=== PATIENT | female | born 1955 | race Caucasian/White ===

== ENCOUNTER 2017-03-01 19:23 | Inpatient (IN) | payer BC ==
[~2017-03-01] VITALS: Ht 152.4 cm; Wt 72.0 kg
[2017-03-01 23:07] VITALS: PULSE 72
[2017-03-01 23:11] VITALS: BP 164/86; RESP 20
[2017-03-01 23:30] VITALS: BP 120/73; RESP 16
[2017-03-02] VITALS (11 sets, daily range): BP systolic 115–154; BP diastolic 60–78; PULSE 59–73; RESP 15–19; Ht 152.4 cm; Wt 72.0 kg
[2017-03-02] MEDS ORDERED: ONDANSETRON 4 MG INJ IV PRN (01:30)
[2017-03-02] MEDS ORDERED: CALCIUM GLUCONATE 10% 1 GM in SOD CHLORIDE 0.9% 100 ML IVPB ONE (01:30)
[2017-03-02] MEDS ORDERED: DOCUSATE SODIUM 100 MG CAP PO PRN (01:30)
[2017-03-02] MEDS ORDERED: TRAM50TA2 PO (01:33)
[2017-03-02] MEDS ORDERED: CARV12.598 PO (01:33)
[2017-03-02] MEDS ORDERED: SIMV5TAB50 PO (01:33)
[2017-03-02] MEDS ORDERED: DILTIAZEM PO (01:33)
[2017-03-02] MEDS ORDERED: CHOL100062 PO (01:33)
[2017-03-02] MEDS ORDERED: CALC600T11 PO (01:33)
[2017-03-02 08:23] LABS: BASOPHILS % 0.3 % (0.0-2.0); EOSINOPHILS # 0.3 10^3/ul (0.0-0.5); EOSINOPHILS % 3.5 % (0.0-7.0); HEMATOCRIT 39.5 % (37.0-47.0); HEMOGLOBIN 13.7 g/dl (12.0-16.0); LYMPHOCYTES # 1.9 10^3/ul (0.8-2.9); LYMPHOCYTES % 24.9 % (15.0-51.0); MEAN CORPUSCULAR HEMOGLOBIN 29.9 pg (29.0-33.0); MEAN CORPUSCULAR HGB CONC 34.7 g/dl (32.0-37.0); MEAN CORPUSCULAR VOLUME 86.2 fl (82.0-101.0); MEAN PLATELET VOLUME 11.9 fl (7.4-10.4); MONOCYTE # 0.6 10^3/ul (0.3-0.9); MONOCYTES % 7.4 % (0.0-11.0); NEUTROPHILS % 63.8 % (39.0-77.0); PLATELET COUNT 204 10^3/UL (140-415); RED BLOOD COUNT 4.58 10^6/ul (4.20-5.40); RED CELL DISTRIBUTION WIDTH 12.9 % (11.5-14.5); WHITE BLOOD COUNT 7.4 10^3/ul (4.8-10.8)
[2017-03-02 08:41] LABS: CREATININE 0.83 mg/dl (0.44-1.00); MAGNESIUM 1.9 mg/dl (1.7-2.5); PHOSPHORUS 7.1 mg/dl (2.5-4.9); POTASSIUM 3.9 mmol/L (3.5-5.1)
[2017-03-02 08:58] LABS: CALCIUM 5.7 mg/dl (8.4-10.2)
[2017-03-02] MEDS: CALCIUM CARBONATE 500 MG CHEW TAB PO SCH ×4 (09:09→21:26)
[2017-03-02] MEDS: FAMOTIDINE 20 MG TAB GTB SCH ×2 (09:09→21:27)
[2017-03-02] MEDS: CHOLECALCIFEROL 1,000 UNIT TAB PO SCH ×2 (09:09→21:26)
--- NOTE | 2017-03-02 14:07 | HP ---
Date/Time of Note Date/Time of Note DATE: 03/02/17 TIME: 13:50 Assessment/Plan VTE Prophylaxis VTE Prophylaxis Intervention: ambulation Lines/Catheters IV Catheter Type (from Nrs): Saline Lock Assessment/Plan Chief Complaint/Hosp Course 1. 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 Hypertension, controlled 3. Chronic Hypocalcemia unknown etiology 4. Hx of stroke 2 years ago 5. Dyslipidemia 6. Overweight Problems: Assessment/Plan 1. Neurology consult dr Delio Del Valle, dr Catherine is covering, contacted 2. Continue home meds 3. Will start pt on prednisone HPI/ROS Admit Date/Time Admit Date/Time Mar 01, 2017 at 22:54 Hx of Present Illness Pt went to [place] [facility] 03/01/17 with right eye pain and fascial drop. She reported that she started to have pain in right eye 4 days prior. She also reported right side face droopiness. She is unable to see with her right eye.Pt is positive for hypocalcemia for 8 years. SHE has dyslipidemia and Hypertension. HX of stroke 2 yo ago ROS Constitutional: no complaints Eyes: discharge, pain (right yey), redness, visual change (blind right eye), No no complaints, No other ENT: bleeding, congestion, pain, No discharge, No dysphagia, No no complaints, No other, No sore throat Respiratory: no complaints Cardiovascular: edema, no complaints, No chest pain, No lightheadedness, No orthopenea, No other, No palpitations, No paroxysmal nocturnal dyspnea Gastrointestinal: no complaints Genitourinary: no complaints Skin: no complaints Neurologic: focal-weakness (right side of the face), headache, no complaints, No confusion, No dizziness, No other, No seizure, No syncope Endocrine: polydypsia, polyuria, No dry skin, No no complaints, No other, No temp intolerance, No weight change Psychological: anxiety, depression, No confusion, No nl mood/affect, No no complaints, No other, No suicidal Additional Comments report hypocalcemia PMH/Family/Social Past Medical History Medical History: hypertension, other (hypocalcemia, hx stroke) Past Surgical History Past Surgical Hx: other (C section 23 years ago) Family History Significant Family History: diabetes (mother) Social History Alcohol Use: none Smoking Status: Never smoker Drug Use: none Exam/Review of Systems Vital Signs Vitals Vital Signs Date Time Temp Pulse Resp B/P Pulse Ox O2 Delivery O2 Flow Rate FiO2 03/02/17 12:05 72 03/02/17 11:24 98.1 19 133/75 98 Intake and Output 03/01/17 03/01/17 03/02/17 15:00 23:00 07:00 Intake Total 610 ml Balance 610 ml Exam Exam right side fascial weakness and droopiness, pt is unable to see anything with right eye Constitutional: alert, oriented Head: atraumatic, normocephalic Eyes: other (right eye ptosis) ENMT: nl external ears & nose Neck: supple Respiratory: clear to auscultation Cardiovascular: regular rate and rhythm Gastrointestinal: soft Genitourinary - Female: nl external genitalia Musculoskeletal: muscle weakness (right side of faCE) Neurological: [employer]PERATOR II-XII intact, No DTR's symmetric, No confused, No focal weakness, No lethargic, No nl mental status, No nl speech, No nl strength, No numbness, No other, No reflexes , No unresponsive Skin: nl turgor Labs Result Diagram: 03/02/1744 03/02/1744 Medications Medications Current Medications Acetaminophen (Tylenol Tab) 650 mg Q6H PRN PO PAIN AND OR ELEVATED TEMP; Start 03/02/17 at 01:30 Docusate Sodium (Colace) 100 mg BID PRN PO CONSTIPATION; Start 03/02/17 at 01:30 Ondansetron HCl (Zofran Inj) 4 mg Q6H PRN IV NAUSEA AND/OR VOMITING; Start 03/02 at 01:30 Famotidine (Pepcid) 20 mg BID GTB Last administered on 03/02/17 09:09; Admin Dose 20 MG; Start 03/02/17 at 09:00 Calcium Carbonate (Tums) 2,000 mg QID PO Last administered on 03/02/17 12:59; Admin Dose 2,000 MG; Start 03/02/17 at 09:00 Carvedilol (Coreg) 12.5 mg BID PO Last administered on 03/02/17 09:09; Admin Dose 12.5 MG; Start 03/02/17 at 09:00 Cholecalciferol (Vitamin D) 1,000 unit BID PO Last administered on 9/9/17at 09: 09; Admin Dose 1,000 UNIT; Start 03/02/17 at 09:00 Tramadol HCl (Ultram) 50 mg Q8 PRN PO PAIN; Start 03/02/17 at 01:30 Atorvastatin Calcium (Lipitor) 10 mg DAILY@21 PO ; Start 03/02/17 at 21:00 JOHANN CHACON Mar 02, 2017 14:01
[2017-03-02] MEDS: predniSONE 20 MG TAB PO SCH (14:55)
[2017-03-02] MEDS ORDERED: ASPIRIN (EC) 81 MG TAB PO ONE (17:00)
[2017-03-02] MEDS: ASPIRIN (EC) 81 MG TAB PO SCH (17:00)
[2017-03-02 17:58] LABS: CALCIUM 5.9 mg/dl (8.4-10.2)
[2017-03-02] MEDS ORDERED: MAGNESIUM SULFATE 2 GM/50 ML 50 ML IVPB ONE (18:30)
[2017-03-02] MEDS ORDERED: CALCIUM GLUCONATE 10% 2 GM in SOD CHLORIDE 0.9% 100 ML IVPB ONE (21:00)
[2017-03-02] MEDS: ATORVASTATIN 10 MG TAB PO SCH (21:26)
[2017-03-02] MEDS: ACETAMINOPHEN 325 MG TAB PO PRN (21:34)
[2017-03-03] VITALS (12 sets, daily range): BP systolic 119–143; BP diastolic 66–89; PULSE 62–80; RESP 15–20
[2017-03-03 07:42] LABS: BASOPHILS % 0.1 % (0.0-2.0); EOSINOPHILS % 0.1 % (0.0-7.0); HEMATOCRIT 40.6 % (37.0-47.0); LYMPHOCYTES # 1.3 10^3/ul (0.8-2.9); LYMPHOCYTES % 12.9 % (15.0-51.0); MEAN CORPUSCULAR HEMOGLOBIN 29.4 pg (29.0-33.0); MEAN CORPUSCULAR HGB CONC 34.5 g/dl (32.0-37.0); MEAN CORPUSCULAR VOLUME 85.3 fl (82.0-101.0); MEAN PLATELET VOLUME 12.4 fl (7.4-10.4); MONOCYTE # 0.3 10^3/ul (0.3-0.9); MONOCYTES % 3.3 % (0.0-11.0); PLATELET COUNT 175 10^3/UL (140-415); RED BLOOD COUNT 4.76 10^6/ul (4.20-5.40); RED CELL DISTRIBUTION WIDTH 12.6 % (11.5-14.5); WHITE BLOOD COUNT 10.3 10^3/ul (4.8-10.8)
[2017-03-03] MEDS: FAMOTIDINE 20 MG TAB GTB SCH ×2 (08:05→21:10)
[2017-03-03] MEDS: predniSONE 20 MG TAB PO SCH (08:05)
[2017-03-03] MEDS: CALCIUM CARBONATE 500 MG CHEW TAB PO SCH ×4 (08:05→21:10)
[2017-03-03] MEDS: CHOLECALCIFEROL 1,000 UNIT TAB PO SCH (08:06)
[2017-03-03] MEDS: ASPIRIN (EC) 81 MG TAB PO SCH (08:06)
[2017-03-03 08:11] LABS: ALBUMIN 3.9 g/dl (3.3-4.9); ALBUMIN/GLOBULIN RATIO 1.18; BILIRUBIN,INDIRECT 0.3 mg/dl (0-1.1); BILIRUBIN,TOTAL 0.3 mg/dl (0.2-1.3); CALCIUM 6.6 mg/dl (8.4-10.2); CREATININE 0.75 mg/dl (0.44-1.00); POTASSIUM 4.3 mmol/L (3.5-5.1); TOTAL PROTEIN 7.2 g/dl (6.1-8.1)
[2017-03-03 08:28] LABS: T3 UPTAKE 31.4 % (23.5-40.5)
--- NOTE | 2017-03-03 16:13 | CONS ---
Date/Time of Note Date/Time of Note DATE: 03/03/17 TIME: 16:09 Assessment/Plan Assessment/Plan Chief Complaint/Hosp Course 61 yo female with history of HTN, HLD, prior CVA p/w right CN: VII peripheral weakness r/o Carlos's vs CVA further imaging pending. Recommendations MRI Brain +/- contrast Prednisone 60 mg daily- Medrol Dose Pack optimize risk factors for stroke SBP<140/90 check FLP, HBA1C ECHO management of hypocalcemia per primary team will follow Problems: Consultation Date/Type/Reason Admit Date/Time Mar 01, 2017 at 22:54 Date of Consultation: Mar 03, 2017 Type of Consultation: Neurology Reason for Consultation right bells Referring Provider: XANEDR OLSON of Present Illness 61 year old female with history of HTN, HLD, previous CVA 2 years ago with residual left sided weakness p/w pain in right eye over 4 days ago with right sided facial weakness. She is undergoing further work up for possible CVA, prednisone initiated for possible Carlos's. MRI Brain +/- contrast pending. Eyes: discharge, pain (right yey), redness, visual change (blind right eye), No no complaints, No other ENT: bleeding, congestion, pain, No discharge, No dysphagia, No no complaints, No other, No sore throat Respiratory: no complaints Cardiovascular: edema, no complaints, No chest pain, No lightheadedness, No orthopenea, No other, No palpitations, No paroxysmal nocturnal dyspnea Gastrointestinal: no complaints Genitourinary: no complaints Skin: no complaints Neurologic: focal-weakness (right side of the face), headache, no complaints, No confusion, No dizziness, No other, No seizure, No syncope Psychological: anxiety, depression, No confusion, No nl mood/affect, No no complaints, No other, No suicidal Past Medical History Medical History: hypertension, other (hypocalcemia, hx stroke) Past Surgical History Past Surgical Hx: other (C section 23 years ago) Social History Alcohol Use: none Smoking Status: Never smoker Drug Use: none Exam/Review of Systems Vital Signs Vitals Vital Signs Date Time Temp Pulse Resp B/P Pulse Ox O2 Delivery O2 Flow Rate FiO2 03/03/17 16:06 80 03/03/17 12:24 97.5 20 143/70 98 Intake and Output 03/02/17 03/02/17 03/03/17 15:00 23:00 07:00 Intake Total 1500 ml 400 ml Balance 1500 ml 400 ml Exam Constitutional: alert, oriented, well developed Neurological: DTR's symmetric, nl mental status, nl speech, nl strength (DAPHNE blinks to threat EOMI no nystagmus, right facial peripheral weakness) Results Result Diagram: 03/03/17 0646 03/03/17 0646 Results 24 hrs Laboratory Tests Test 03/02/17 17:20 03/02/17 19:20 03/03/17 06:46 Calcium Level 5.9 *L 5.7 *L 6.6 L Magnesium Level 1.9 Parathyroid Hormone (Intact) White Blood Count 10.3 # Red Blood Count 4.76 Hemoglobin 14.0 Hematocrit 40.6 Mean Corpuscular Volume 85.3 Mean Corpuscular Hemoglobin 29.4 Mean Corpuscular Hemoglobin Concent 34.5 Red Cell Distribution Width 12.6 Platelet Count 175 Mean Platelet Volume 12.4 H Neutrophils % 83.0 H Lymphocytes % 12.9 L Monocytes % 3.3 Eosinophils % 0.1 Basophils % 0.1 Nucleated Red Blood Cells % 0.0 Neutrophils # (Manual) 8.5 H Lymphocytes # 1.3 Monocytes # 0.3 Eosinophils # 0.0 Basophils # 0.0 Nucleated Red Blood Cells # 0.0 Sodium Level 140 Potassium Level 4.3 Chloride Level 104 Carbon Dioxide Level 26 Anion Gap 14 Blood Urea Nitrogen 15 Creatinine 0.75 Glucose Level 142 # Ionized Calcium (Measured) 0.8 L Total Bilirubin 0.3 Direct Bilirubin 0.00 Indirect Bilirubin 0.3 Aspartate Amino Transf (AST/SGOT) 29 Alanine Aminotransferase (ALT/SGPT) 34 Alkaline Phosphatase 79 Total Protein 7.2 Albumin 3.9 Globulin 3.30 H Albumin/Globulin Ratio 1.18 Free Thyroxine Index 2.57 Thyroxine (T4) 8.2 Triiodothyronine (T3) Uptake 31.4 Medications Medications Current Medications Acetaminophen (Tylenol Tab) 650 mg Q6H PRN PO PAIN AND OR ELEVATED TEMP Last administered on 03/02/17t 21:34; Admin Dose 650 MG; Start 03/02/17 at 01:30 Docusate Sodium (Colace) 100 mg BID PRN PO CONSTIPATION; Start 03/02/17 at 01:30 Ondansetron HCl (Zofran Inj) 4 mg Q6H PRN IV NAUSEA AND/OR VOMITING; Start 03/02 at 01:30 Famotidine (Pepcid) 20 mg BID GTB Last administered on 03/03/17 08:05; Admin Dose 20 MG; Start 03/02/17 at 09:00 Calcium Carbonate (Tums) 2,000 mg QID PO Last administered on 03/03/17 12:41; Admin Dose 2,000 MG; Start 03/02/17 at 09:00 Carvedilol (Coreg) 12.5 mg BID PO Last administered on 03/03/17 08:06; Admin Dose 12.5 MG; Start 03/02/17 at 09:00 Cholecalciferol (Vitamin D) 1,000 unit BID PO Last administered on 03/03/17 08 :06; Admin Dose 1,000 UNIT; Start 03/02/17 at 09:00 Tramadol HCl (Ultram) 50 mg Q8 PRN PO PAIN; Start 03/02/17 at 01:30 Atorvastatin Calcium (Lipitor) 10 mg DAILY@21 PO Last administered on 03/02/17 21:26; Admin Dose 10 MG; Start 03/02/17 at 21:00 Prednisone (Prednisone) 60 mg DAILY PO Last administered on 03/03/17 08:05; Admin Dose 60 MG; Start 03/02/17 at 14:30 Aspirin (Halfprin) 81 mg DAILY PO ; Start 03/02/17 at 17:00 VERÓNICA URIARTE MD Mar 03, 2017 16:13
--- NOTE | 2017-03-03 18:31 | PN ---
Date/Time of Note Date/Time of Note DATE: 03/03/17 TIME: 18:25 Assessment/Plan VTE Prophylaxis VTE Prophylaxis Intervention: LMWH Lines/Catheters IV Catheter Type (from Nrs): Saline Lock Assessment/Plan Chief Complaint/Hosp Course 1. 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 Hypertension, controlled 3. Chronic Hypocalcemia could be secondary Hypoparathyroidism( pt said thast she was told in [place] [facility]) vs Vit d def 4. Hx of stroke 2 years ago 5. Dyslipidemia 6. Overweight Problems: Assessment/Plan 1. MRI pending 2. C/W ASA, order ECHO, FLP and HBA1C 3. c/w Prednisone 4 Ergocalciferol and Ca carbonate 5 PTH, Vit d 25 pending Problems: Subjective 24 Hr Interval Summary Free Text/Dictation Tingling and numbness has improved a bit but weakness still there Exam/Review of Systems Vital Signs Vitals Vital Signs Date Time Temp Pulse Resp B/P Pulse Ox O2 Delivery O2 Flow Rate FiO2 03/03/17 16:17 98.5 89 20 122/71 98 Intake and Output 03/02/17 03/02/17 03/03/17 15:00 23:00 07:00 Intake Total 1500 ml 400 ml Balance 1500 ml 400 ml Exam Constitutional : discharge, pain (right yey), redness, visual change (blind right eye), No no complaints, No other Respiratory: CTAB Cardiovascular: Regular rate and rthym Gastrointestinal: soft, non tender Ext: no edema Neurologic: focal-weakness (right side of the face), headache, no complaints, Results Result Diagram: 03/03/17 0646 03/03/17 0646 Results 24 hrs Laboratory Tests Test 03/02/17 19:20 03/03/17 06:46 Calcium Level 5.7 *L 6.6 L White Blood Count 10.3 # Red Blood Count 4.76 Hemoglobin 14.0 Hematocrit 40.6 Mean Corpuscular Volume 85.3 Mean Corpuscular Hemoglobin 29.4 Mean Corpuscular Hemoglobin Concent 34.5 Red Cell Distribution Width 12.6 Platelet Count 175 Mean Platelet Volume 12.4 H Neutrophils % 83.0 H Lymphocytes % 12.9 L Monocytes % 3.3 Eosinophils % 0.1 Basophils % 0.1 Nucleated Red Blood Cells % 0.0 Neutrophils # (Manual) 8.5 H Lymphocytes # 1.3 Monocytes # 0.3 Eosinophils # 0.0 Basophils # 0.0 Nucleated Red Blood Cells # 0.0 Sodium Level 140 Potassium Level 4.3 Chloride Level 104 Carbon Dioxide Level 26 Anion Gap 14 Blood Urea Nitrogen 15 Creatinine 0.75 Glucose Level 142 # Ionized Calcium (Measured) 0.8 L Total Bilirubin 0.3 Direct Bilirubin 0.00 Indirect Bilirubin 0.3 Aspartate Amino Transf (AST/SGOT) 29 Alanine Aminotransferase (ALT/SGPT) 34 Alkaline Phosphatase 79 Total Protein 7.2 Albumin 3.9 Globulin 3.30 H Albumin/Globulin Ratio 1.18 Free Thyroxine Index 2.57 Thyroxine (T4) 8.2 Triiodothyronine (T3) Uptake 31.4 Medications Medications Current Medications Acetaminophen (Tylenol Tab) 650 mg Q6H PRN PO PAIN AND OR ELEVATED TEMP Last administered on 03/02/17 21:34; Admin Dose 650 MG; Start 03/02/17 at 01:30 Docusate Sodium (Colace) 100 mg BID PRN PO CONSTIPATION; Start 03/02/17 at 01:30 Ondansetron HCl (Zofran Inj) 4 mg Q6H PRN IV NAUSEA AND/OR VOMITING; Start 03/02 at 01:30 Famotidine (Pepcid) 20 mg BID GTB Last administered on 03/03/17 08:05; Admin Dose 20 MG; Start 03/02/17 at 09:00 Calcium Carbonate (Tums) 2,000 mg QID PO Last administered on 03/03/17 17:13; Admin Dose 2,000 MG; Start 03/02/17 at 09:00 Carvedilol (Coreg) 12.5 mg BID PO Last administered on 03/03/17 08:06; Admin Dose 12.5 MG; Start 03/02/17 at 09:00 Tramadol HCl (Ultram) 50 mg Q8 PRN PO PAIN; Start 03/02/17 at 01:30 Atorvastatin Calcium (Lipitor) 10 mg DAILY@21 PO Last administered on 03/02/17 21:26; Admin Dose 10 MG; Start 03/02/17 at 21:00 Prednisone (Prednisone) 60 mg DAILY PO Last administered on 03/03/17 08:05; Admin Dose 60 MG; Start 03/02/17 at 14:30 Aspirin 81 mg 81 mg DAILY PO ; Start 03/02/17 at 17:00 Calcium Gluconate/ Sodium Chloride (Ca Gluc/NS) 110 ml @ 110 mls/hr ONCE ONCE IVPB ; Start 03/03/17 at 20:00; Stop 03/03/17 at 20:59 Ergocalciferol (Drisdol) 50,000 unit Mo@09 PO ; Start 03/04/17 at 09:00 STEPHEN OCHOA MD Mar 03, 2017 18:31
[2017-03-03] MEDS ORDERED: CALCIUM GLUCONATE 10% 1 GM in SOD CHLORIDE 0.9% 100 ML IVPB ONE (20:00)
[2017-03-03] MEDS: ATORVASTATIN 10 MG TAB PO SCH (21:10)
[2017-03-03] MEDS: ACETAMINOPHEN 325 MG TAB PO PRN (23:09)
[2017-03-04] VITALS (12 sets, daily range): BP systolic 111–152; BP diastolic 63–84; PULSE 60–74; RESP 18–20
[2017-03-04 07:47] LABS: BASOPHILS % 0.2 % (0.0-2.0); EOSINOPHILS # 0.1 10^3/ul (0.0-0.5); EOSINOPHILS % 0.4 % (0.0-7.0); HEMATOCRIT 40.2 % (37.0-47.0); HEMOGLOBIN 13.5 g/dl (12.0-16.0); LYMPHOCYTES # 3.4 10^3/ul (0.8-2.9); LYMPHOCYTES % 20.3 % (15.0-51.0); MEAN CORPUSCULAR HEMOGLOBIN 29.3 pg (29.0-33.0); MEAN CORPUSCULAR HGB CONC 33.6 g/dl (32.0-37.0); MEAN CORPUSCULAR VOLUME 87.2 fl (82.0-101.0); MEAN PLATELET VOLUME 12.4 fl (7.4-10.4); MONOCYTE # 1.1 10^3/ul (0.3-0.9); MONOCYTES % 6.6 % (0.0-11.0); PLATELET COUNT 215 10^3/UL (140-415); RED BLOOD COUNT 4.61 10^6/ul (4.20-5.40); WHITE BLOOD COUNT 16.6 10^3/ul (4.8-10.8)
[2017-03-04 08:22] LABS: MAGNESIUM 2.1 mg/dl (1.7-2.5); PHOSPHORUS 5.4 mg/dl (2.5-4.9)
[2017-03-04 08:31] LABS: ALBUMIN 3.9 g/dl (3.3-4.9); ALBUMIN/GLOBULIN RATIO 1.14; BILIRUBIN,INDIRECT 0.1 mg/dl (0-1.1); BILIRUBIN,TOTAL 0.1 mg/dl (0.2-1.3); CALCIUM 6.3 mg/dl (8.4-10.2); CREATININE 0.85 mg/dl (0.44-1.00); POTASSIUM 3.5 mmol/L (3.5-5.1); TOTAL PROTEIN 7.3 g/dl (6.1-8.1)
[2017-03-04] MEDS ORDERED: ERGOCALCIFEROL 50,000 UNIT CAP PO SCH (09:00)
[2017-03-04] MEDS: ASPIRIN (EC) 81 MG TAB PO SCH (09:12)
[2017-03-04] MEDS: predniSONE 20 MG TAB PO SCH (09:12)
[2017-03-04] MEDS: CALCIUM CARBONATE 500 MG CHEW TAB PO SCH ×5 (09:12→23:00)
[2017-03-04] MEDS: FAMOTIDINE 20 MG TAB GTB SCH ×2 (09:12→21:22)
--- NOTE | 2017-03-04 11:21 | CONS ---
Date/Time of Note Date/Time of Note DATE: 03/04/17 TIME: 11:19 Consult Date/Type/Reason Admit Date/Time Mar 01, 2017 at 22:54 Initial Consult Date 03/03/17 Type of Consultation: Neurology Reason for Consultation right bells Ordering Provider: XANDER OLSON MD Subjective symptoms persistent right peripheral facial weakness pending MRI Objective Vital Signs Date Time Temp Pulse Resp B/P Pulse Ox O2 Delivery O2 Flow Rate FiO2 03/04/17 08:21 97.8 71 18 128/75 96 Intake and Output 03/03/17 03/03/17 03/04/17 15:00 23:00 07:00 Intake Total 520 ml Balance 520 ml Exam Constitutional: alert, oriented, well developed Neurological: DTR's symmetric, nl mental status, nl speech, nl strength (DAPHNE blinks to threat EOMI no nystagmus, right facial peripheral weakness) Results/Medications Result Diagram: 03/04/17 0639 03/04/17 0639 Results 24 hrs Laboratory Tests Test 03/04/17 06:39 White Blood Count 16.6 #H Red Blood Count 4.61 Hemoglobin 13.5 Hematocrit 40.2 Mean Corpuscular Volume 87.2 Mean Corpuscular Hemoglobin 29.3 Mean Corpuscular Hemoglobin Concent 33.6 Red Cell Distribution Width 13.0 Platelet Count 215 # Mean Platelet Volume 12.4 H Neutrophils % 72.0 Lymphocytes % 20.3 Monocytes % 6.6 Eosinophils % 0.4 Basophils % 0.2 Nucleated Red Blood Cells % 0.0 Neutrophils # (Manual) 11.9 H Lymphocytes # 3.4 H Monocytes # 1.1 H Eosinophils # 0.1 Basophils # 0.0 Nucleated Red Blood Cells # 0.0 Sodium Level 143 Potassium Level 3.5 Chloride Level 105 Carbon Dioxide Level 27 Anion Gap 15 Blood Urea Nitrogen 19 Creatinine 0.85 Glucose Level 85 # Hemoglobin A1c 6.0 H Calcium Level 6.3 L Ionized Calcium (Measured) 0.8 L Phosphorus Level 5.4 H Magnesium Level 2.1 Total Bilirubin 0.1 L Direct Bilirubin 0.00 Indirect Bilirubin 0.1 Aspartate Amino Transf (AST/SGOT) 25 Alanine Aminotransferase (ALT/SGPT) 31 Alkaline Phosphatase 74 Total Protein 7.3 Albumin 3.9 Globulin 3.40 H Albumin/Globulin Ratio 1.14 Triglycerides Level 97 Cholesterol Level 203 H LDL Cholesterol, Calculated 144 HDL Cholesterol 40 Cholesterol/HDL Ratio 5.0 Medications Current Medications Acetaminophen (Tylenol Tab) 650 mg Q6H PRN PO PAIN AND OR ELEVATED TEMP Last administered on 03/03/17 23:09; Admin Dose 650 MG; Start 03/02/17 at 01:30 Docusate Sodium (Colace) 100 mg BID PRN PO CONSTIPATION; Start 03/02/17 at 01:30 Ondansetron HCl (Zofran Inj) 4 mg Q6H PRN IV NAUSEA AND/OR VOMITING; Start 03/02 at 01:30 Famotidine (Pepcid) 20 mg BID GTB Last administered on 03/04/17 09:12; Admin Dose 20 MG; Start 03/02/17 at 09:00 Calcium Carbonate (Tums) 2,000 mg QID PO Last administered on 03/04/17 09:12; Admin Dose 2,000 MG; Start 03/02/17 at 09:00 Carvedilol (Coreg) 12.5 mg BID PO Last administered on 03/04/17 09:13; Admin Dose 12.5 MG; Start 03/02/17 at 09:00 Tramadol HCl (Ultram) 50 mg Q8 PRN PO PAIN; Start 03/02/17 at 01:30 Atorvastatin Calcium (Lipitor) 10 mg DAILY@21 PO Last administered on 21:10; Admin Dose 10 MG; Start 03/02/17 at 21:00 Prednisone (Prednisone) 60 mg DAILY PO Last administered on 03/04/17 09:12; Admin Dose 60 MG; Start 03/02/17 at 14:30 Aspirin (Halfprin) 81 mg DAILY PO Last administered on 03/04/17 09:12; Admin Dose 81 MG; Start 03/02/17 at 17:00 Ergocalciferol (Drisdol) 50,000 unit Mo@09 PO Last administered on 03/04/17 09 :12; Admin Dose 50,000 UNIT; Start 03/04/17 at 09:00 Assessment/Plan Chief Complaint/Hosp Course 61 yo female with history of HTN, HLD, prior CVA p/w right CN: VII peripheral weakness r/o Carlos's vs CVA further imaging pending. Recommendations MRI Brain +/- contrast Prednisone 60 mg daily- Medrol Dose Pack optimize risk factors for stroke SBP<140/90 HBA1C: 6.0% LDL: 144 increase statin to 40 mg daily ECHO management of hypocalcemia per primary team will follow Problems: VERÓNICA URIARTE MD Mar 04, 2017 11:21
--- NOTE | 2017-03-04 13:51 | RADRPT ---
Echocardiogram Report Patient Name: MARILU COTE Gender: Female Date: 1955 Study Date: 04-Mar-2017 [employer] Analyst: Jose Luis Ring [facility] Location: 5540 Ref. Physician: STEPHEN OCHOA Quality: Adequate Procedures: Transthoracic echocardiogram with complete 2D, M-Mode, and doppler examination. Indications: Thrombus?, Stroke. 2D/M Mode Doppler Measurement Value Normal Ranges Measurement Value Normal Ranges LVIDd 2D 3.7 3.5 - 5.6 cm AV Peak Narendra 1.6 m/sec LVIDs 2D 2.4 2.1 - 4.1 cm AV Peak PG 10.0 mmHg FS 2D 35.6 % LVOT Peak Narendra 1.3 m/sec LVPWd 2D 1.3 0.6 - 1.1 cm LVOT Peak PG 7.0 mmHg IVSd 2D 1.3 0.6 - 1.1 cm MV E Peak Narendra 0.9 m/sec IVS/LVPW 2D 1.0 MV A Peak Narendra 0.8 m/sec AoR Diam 2D 2.5 2.0 - 3.7 cm MV E/A 1.1 LA/Ao 2D 2 0 - 1 MV Decel Time 246 msec EDV 2D 49.8 cm3 MV E/A 1.1 ESV 2D 13.3 cm3 TR Peak Narendra 2.8 m/sec LA Dimen 2D 3.9 2.3 - 4.0 cm TR Peak PG 31.0 mmHg RVSP 34.0 mmHg Findings Left Ventricle: Hyperdynamic left ventricular systolic function. Normal left ventricular cavity size. Mild concentric left ventricular hypertrophy. Ejection fraction is visually estimated at 6065 %. Tissue Doppler/Mitral Doppler indices are consistent with impaired relaxation (Stage I diastolic dysfunction). Right Ventricle: Normal right ventricular size. Normal right ventricular systolic function. Left Atrium: The left atrium is normal in size. Right Atrium: The right atrium is normal in size. Mitral Valve: Mild mitral leaflet calcification. Mild mitral annular calcification. Trace mitral regurgitation. Aortic Valve: Normal appearance of the aortic valve. No significant aortic stenosis or insufficiency. Tricuspid Valve: Normal appearance of the tricuspid valve. Estimated peak PA systolic pressure 34 mmHg. There is mild tricuspid regurgitation. Pulmonic Valve: Pulmonic valve not well visualized. There is trace pulmonic regurgitation. Pericardium: Normal pericardium with no significant pericardial effusion. Aorta: Normal aortic root. IVC: Normal size and normal respiratory collapse consistent with normal right atrial pressure. Conclusions 1.Hyperdynamic left ventricular systolic function. Normal left ventricular cavity size. Mild concentric left ventricular hypertrophy. Ejection fraction is visually estimated at 60-65 %. Tissue Doppler/Mitral Doppler indices are consistent with impaired relaxation (Stage I diastolic dysfunction). 2.Mild mitral leaflet calcification. Mild mitral annular calcification. Trace mitral regurgitation. 3.Normal appearance of the tricuspid valve. Estimated peak PA systolic pressure 34 mmHg. There is mild tricuspid regurgitation. 4.Pulmonic valve not well visualized. There is trace pulmonic regurgitation. Electronically Signed By: David Pierce 04-Mar-2017 13:51:10 -0700 Patient Name: MARILU COTE Study Date: 04-Mar-2017 [id number]
--- NOTE | 2017-03-04 18:46 | PN ---
Date/Time of Note Date/Time of Note DATE: 03/04/17 TIME: 18:44 Assessment/Plan VTE Prophylaxis VTE Prophylaxis Intervention: other Lines/Catheters IV Catheter Type (from Nrs): Saline Lock Assessment/Plan Chief Complaint/Hosp Course 1. 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 Hypertension, controlled 3. Chronic Hypocalcemia could be s Hypoparathyroidism( pt said thast she was told in [place] [facility]) vs Vit d def 4. Hx of stroke 2 years ago 5. Dyslipidemia 6. Overweight PLAN CALCIUM REPLACEMENT Problems: Subjective 24 Hr Interval Summary Subjective hx not possible: other (FACIAL WEAKNESS) Exam/Review of Systems Vital Signs Vitals Vital Signs Date Time Temp Pulse Resp B/P Pulse Ox O2 Delivery O2 Flow Rate FiO2 03/04/17 16:24 98.1 74 18 111/63 92 Intake and Output 03/03/17 03/03/17 03/04/17 15:00 23:00 07:00 Intake Total 520 ml Balance 520 ml Exam Constitutional: other (FACIAL WEAKNESS+) Neck: supple Respiratory: clear to auscultation Cardiovascular: regular rate and rhythm Gastrointestinal: soft Results Result Diagram: 03/04/17 0639 03/04/17 0639 Results 24 hrs Laboratory Tests Test 03/04/17 06:39 White Blood Count 16.6 #H Red Blood Count 4.61 Hemoglobin 13.5 Hematocrit 40.2 Mean Corpuscular Volume 87.2 Mean Corpuscular Hemoglobin 29.3 Mean Corpuscular Hemoglobin Concent 33.6 Red Cell Distribution Width 13.0 Platelet Count 215 # Mean Platelet Volume 12.4 H Neutrophils % 72.0 Lymphocytes % 20.3 Monocytes % 6.6 Eosinophils % 0.4 Basophils % 0.2 Nucleated Red Blood Cells % 0.0 Neutrophils # (Manual) 11.9 H Lymphocytes # 3.4 H Monocytes # 1.1 H Eosinophils # 0.1 Basophils # 0.0 Nucleated Red Blood Cells # 0.0 Sodium Level 143 Potassium Level 3.5 Chloride Level 105 Carbon Dioxide Level 27 Anion Gap 15 Blood Urea Nitrogen 19 Creatinine 0.85 Glucose Level 85 # Hemoglobin A1c 6.0 H Calcium Level 6.3 L Ionized Calcium (Measured) 0.8 L Phosphorus Level 5.4 H Magnesium Level 2.1 Total Bilirubin 0.1 L Direct Bilirubin 0.00 Indirect Bilirubin 0.1 Aspartate Amino Transf (AST/SGOT) 25 Alanine Aminotransferase (ALT/SGPT) 31 Alkaline Phosphatase 74 Total Protein 7.3 Albumin 3.9 Globulin 3.40 H Albumin/Globulin Ratio 1.14 Triglycerides Level 97 Cholesterol Level 203 H LDL Cholesterol, Calculated 144 HDL Cholesterol 40 Cholesterol/HDL Ratio 5.0 Medications Medications Current Medications Acetaminophen (Tylenol Tab) 650 mg Q6H PRN PO PAIN AND OR ELEVATED TEMP Last administered on 03/03/17 23:09; Admin Dose 650 MG; Start 03/02/17 at 01:30 Docusate Sodium (Colace) 100 mg BID PRN PO CONSTIPATION; Start 03/02/17 at 01:30 Ondansetron HCl (Zofran Inj) 4 mg Q6H PRN IV NAUSEA AND/OR VOMITING; Start 03/02 at 01:30 Famotidine (Pepcid) 20 mg BID GTB Last administered on 03/04/17 09:12; Admin Dose 20 MG; Start 03/02/17 at 09:00 Calcium Carbonate (Tums) 2,000 mg QID PO Last administered on 03/04/17 17:36; Admin Dose 2,000 MG; Start 03/02/17 at 09:00 Carvedilol (Coreg) 12.5 mg BID PO Last administered on 03/04/17 09:13; Admin Dose 12.5 MG; Start 03/02/17 at 09:00 Tramadol HCl (Ultram) 50 mg Q8 PRN PO PAIN; Start 03/02/17 at 01:30 Prednisone (Prednisone) 60 mg DAILY PO Last administered on 03/04/17 09:12; Admin Dose 60 MG; Start 03/02/17 at 14:30 Aspirin (Halfprin) 81 mg DAILY PO Last administered on 03/04/17 09:12; Admin Dose 81 MG; Start 03/02/17 at 17:00 Ergocalciferol (Drisdol) 50,000 unit Mo@09 PO Last administered on 03/04/17 09 :12; Admin Dose 50,000 UNIT; Start 03/04/17 at 09:00 Atorvastatin Calcium (Lipitor) 40 mg DAILY@21 PO ; Start 03/04/17 at 21:00 Calcitriol (Rocaltrol) 0.5 mcg DAILY PO ; Start 03/05/17 at 09:00; Status XANDER MERCADO MD Mar 04, 2017 18:46
[2017-03-04 19:41] LABS: PTH CALCIUM 6.2 mg/dL (8.6-10.4)
[2017-03-04 21:05] LABS: THYROID STIMULATING HORMONE 0.773 MIU/L (0.465-4.680)
[2017-03-04] MEDS: ATORVASTATIN 40 MG TAB PO SCH (21:22)
[2017-03-04] MEDS: traMADol 50 MG TAB PO PRN (22:38)
--- NOTE | 2017-03-04 23:32 | RADRPT ---
PROCEDURE: MR Brain with and without contrast. CLINICAL INDICATION: Right Carlos's palsy. TECHNIQUE: An MRI of the brain was performed on a 1.5 linda scanner utilizing the following sequen leigh: Sagittal and axial T1 weighted, axial T2 weighted, coronal GRE, axial diffusion weighted with A DC mapping, and post contrast axial and coronal T1 weighted and axial FLAIR. 10 ml of Magnevist was given intravenously without complication. COMPARISON: None. FINDINGS: No evidence of restricted diffusion to suggest acute or early subacute ischemic infarction. No evide nce of pathologic enhancement of the brain parenchyma, leptomeninges or dura. No hypointense signal abnormalities are seen on the GRE images to suggest the presence of blood degr adation products. Scattered nonspecific FLAIR/T2 signal hyperintensity foci in the subcortical and periventricular white matter compatible with sequelae of moderate chronic microvascular ischemic dis ease. There is preservation of bonilla white differentiation and mild prominence of the ventricles and subara chnoid spaces compatible with age related volume loss. No evidence of intracranial hemorrhage, edema, mass effect, or shift. Encephalomalacia of the infer ior left cerebellar hemisphere compatible with remote ischemic infarct The posterior fossa contents, brainstem, craniocervical junction, seventh - eighth cranial nerve com plexes, orbits, paranasal sinuses, and pituitary axis are unremarkable. No calvarial lesion identifi ed. Normal flow voids are visible in the proximal intracranial arteries and dural sinuses, indicating pa tency. IMPRESSION: 1. No acute or early subacute ischemic infarction or pathologic enhancement . 2. Remote left cerebellar ischemic infarct and encephalomalacia. 3. Moderate chronic microvascular ischemic changes and mild cerebral volume loss. 4. No intracranial hemorrhage. RPTAT:AAJJ Physician Veronica Date Time Electronically viewed and signed by Physician Veronica on 03/04/2017 23:32 LIBERTY/
[2017-03-05] VITALS (12 sets, daily range): BP systolic 123–138; BP diastolic 62–80; PULSE 59–80; RESP 17–20
[2017-03-05] MEDS ORDERED: LORAZEPAM 1 MG TAB PO PRN (07:00)
[2017-03-05 08:18] LABS: ALBUMIN 3.7 g/dl (3.3-4.9); ALBUMIN/GLOBULIN RATIO 1.12; BILIRUBIN,INDIRECT 0.2 mg/dl (0-1.1); BILIRUBIN,TOTAL 0.2 mg/dl (0.2-1.3); CREATININE 0.79 mg/dl (0.44-1.00); PHOSPHORUS 5.7 mg/dl (2.5-4.9); POTASSIUM 3.5 mmol/L (3.5-5.1)
[2017-03-05 08:27] LABS: CALCIUM 5.6 mg/dl (8.4-10.2)
[2017-03-05] MEDS: FAMOTIDINE 20 MG TAB GTB SCH ×2 (08:57→20:39)
[2017-03-05] MEDS: predniSONE 20 MG TAB PO SCH (08:58)
[2017-03-05] MEDS: ASPIRIN (EC) 81 MG TAB PO SCH ×3 (08:58→09:07)
[2017-03-05] MEDS: CALCIUM CARBONATE 500 MG CHEW TAB PO SCH ×4 (08:58→20:39)
[2017-03-05] MEDS ORDERED: CALCITRIOL 0.25 MCG CAP PO SCH (09:00)
--- NOTE | 2017-03-05 11:51 | CONS ---
Date/Time of Note Date/Time of Note DATE: 03/05/17 TIME: 11:49 Consult Date/Type/Reason Admit Date/Time Mar 01, 2017 at 22:54 Initial Consult Date 03/03/17 Type of Consultation: Neurology Reason for Consultation eval for [place] Palsy Ordering Provider: XANDER OLSON MD Subjective remains stable MRI negative for acute infarct c/o difficulty sleeping when prednisone taken at night Objective Vital Signs Date Time Temp Pulse Resp B/P Pulse Ox O2 Delivery O2 Flow Rate FiO2 03/05/17 08:24 97.7 63 18 123/62 98 Intake and Output 03/04/17 03/04/17 03/05/17 15:00 23:00 07:00 Intake Total 800 ml 800 ml Balance 800 ml 800 ml Exam Constitutional: alert, oriented, well developed Neurological: DTR's symmetric, nl mental status, nl speech, nl strength (DAPHNE blinks to threat EOMI no nystagmus, right facial peripheral weakness) Results/Medications Result Diagram: 03/04/17 0639 03/05/17 0651 Results 24 hrs Laboratory Tests Test 03/04/17 19:22 03/05/17 06:51 Thyroid Stimulating Hormone (TSH) 0.773 Parathyroid Hormone (Intact) Sodium Level 139 Potassium Level 3.5 Chloride Level 104 Carbon Dioxide Level 27 Anion Gap 12 Blood Urea Nitrogen 17 Creatinine 0.79 Glucose Level 94 Calcium Level 5.6 *L Phosphorus Level 5.7 H Total Bilirubin 0.2 Direct Bilirubin 0.00 Indirect Bilirubin 0.2 Aspartate Amino Transf (AST/SGOT) 21 Alanine Aminotransferase (ALT/SGPT) 24 Alkaline Phosphatase 71 Total Protein 7.0 Albumin 3.7 Globulin 3.30 H Albumin/Globulin Ratio 1.12 Medications Current Medications Acetaminophen (Tylenol Tab) 650 mg Q6H PRN PO PAIN AND OR ELEVATED TEMP Last administered on 03/03/17 23:09; Admin Dose 650 MG; Start 03/02/17 at 01:30 Docusate Sodium (Colace) 100 mg BID PRN PO CONSTIPATION; Start 03/02/17 at 01:30 Ondansetron HCl (Zofran Inj) 4 mg Q6H PRN IV NAUSEA AND/OR VOMITING; Start 03/02 at 01:30 Famotidine (Pepcid) 20 mg BID GTB Last administered on 03/05/17 08:57; Admin Dose 20 MG; Start 03/02/17 at 09:00 Calcium Carbonate (Tums) 2,000 mg QID PO Last administered on 03/05/17 08:58; Admin Dose 2,000 MG; Start 03/02/17 at 09:00 Carvedilol (Coreg) 12.5 mg BID PO Last administered on 03/05/17 08:58; Admin Dose 12.5 MG; Start 03/02/17 at 09:00 Tramadol HCl (Ultram) 50 mg Q8 PRN PO PAIN Last administered on 03/04/17 22:38 ; Admin Dose 50 MG; Start 03/02/17 at 01:30 Prednisone (Prednisone) 60 mg DAILY PO Last administered on 03/05/17 08:58; Admin Dose 60 MG; Start 03/02/17 at 14:30 Aspirin (Halfprin) 81 mg DAILY PO Last administered on 03/05/17 09:07; Admin Dose 81 MG; Start 03/02/17 at 17:00 Ergocalciferol (Drisdol) 50,000 unit Mo@09 PO Last administered on 03/04/17 09 :12; Admin Dose 50,000 UNIT; Start 03/04/17 at 09:00 Atorvastatin Calcium (Lipitor) 40 mg DAILY@21 PO Last administered on 21:22; Admin Dose 40 MG; Start 03/04/17 at 21:00 Calcitriol (Rocaltrol) 0.5 mcg DAILY PO Last administered on 03/05/17 08:57; Admin Dose 0.5 MCG; Start 03/05/17 at 09:00 Lorazepam (Ativan) 1 mg BID PRN PO ANXIETY; Start 03/05/17 at 07:00 Assessment/Plan Chief Complaint/Hosp Course 61 yo female with history of HTN, HLD, prior CVA p/w right [place] palsy. MRI negative for acute process, old infarcts seen. Remote left cerebellar ischemic infarct and encephalomalacia. Recommendations Taper Prednisone, may d/c with Medrol dose pack optimize risk factors for stroke SBP<140/90 HBA1C: 6.0% LDL: 144 increase statin to 40 mg daily management of hypocalcemia per primary team eye patch, eye drops when sleeping patient may be discharged with outpatient follow up- Medrol dose pack take in the morning due to insomnia take with food may d/c with Protonix as well Problems: VERÓNICA URIARTE MD Mar 05, 2017 11:51
--- NOTE | 2017-03-05 17:42 | PN ---
Date/Time of Note Date/Time of Note DATE: 03/05/17 TIME: 17:41 Assessment/Plan VTE Prophylaxis VTE Prophylaxis Intervention: other Lines/Catheters IV Catheter Type (from Nrsg): Saline Lock Assessment/Plan Chief Complaint/Hosp Course 1. 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 Hypertension, controlled 3. Chronic Hypocalcemia could be s Hypoparathyroidism( pt said thast she was told in [place] view) vs Vit d def 4. Hx of stroke 2 years ago 5. Dyslipidemia 6. Overweight PLAN CALCIUM REPLACEMENT tums Problems: Subjective 24 Hr Interval Summary Cardiovascular: no complaints Gastrointestinal: no complaints Exam/Review of Systems Vital Signs Vitals Vital Signs Date Time Temp Pulse Resp B/P Pulse Ox O2 Delivery O2 Flow Rate FiO2 03/05/17 16:26 78 03/05/17 12:13 97.8 18 130/80 97 Intake and Output 03/04/17 03/04/17 03/05/17 15:00 23:00 07:00 Intake Total 800 ml 800 ml Balance 800 ml 800 ml Exam Respiratory: clear to auscultation Cardiovascular: regular rate and rhythm Gastrointestinal: soft Musculoskeletal: nl extremities to inspection Extremities: normal pulses Results Result Diagram: 03/04/17 0639 03/05/17 0651 Results 24 hrs Laboratory Tests Test 03/04/17 19:22 03/05/17 06:51 Thyroid Stimulating Hormone (TSH) 0.773 Parathyroid Hormone (Intact) Sodium Level 139 Potassium Level 3.5 Chloride Level 104 Carbon Dioxide Level 27 Anion Gap 12 Blood Urea Nitrogen 17 Creatinine 0.79 Glucose Level 94 Calcium Level 5.6 *L Phosphorus Level 5.7 H Total Bilirubin 0.2 Direct Bilirubin 0.00 Indirect Bilirubin 0.2 Aspartate Amino Transf (AST/SGOT) 21 Alanine Aminotransferase (ALT/SGPT) 24 Alkaline Phosphatase 71 Total Protein 7.0 Albumin 3.7 Globulin 3.30 H Albumin/Globulin Ratio 1.12 Medications Medications Current Medications Acetaminophen (Tylenol Tab) 650 mg Q6H PRN PO PAIN AND OR ELEVATED TEMP Last administered on 03/03/17t 23:09; Admin Dose 650 MG; Start 03/02/17 at 01:30 Docusate Sodium (Colace) 100 mg BID PRN PO CONSTIPATION; Start 03/02/17 at 01:30 Ondansetron HCl (Zofran Inj) 4 mg Q6H PRN IV NAUSEA AND/OR VOMITING; Start 03/02 at 01:30 Famotidine (Pepcid) 20 mg BID GTB Last administered on 03/05/17 08:57; Admin Dose 20 MG; Start 03/02/17 at 09:00 Carvedilol (Coreg) 12.5 mg BID PO Last administered on 03/05/17 08:58; Admin Dose 12.5 MG; Start 03/02/17 at 09:00 Tramadol HCl (Ultram) 50 mg Q8 PRN PO PAIN Last administered on 03/04/17 22:38 ; Admin Dose 50 MG; Start 03/02/17 at 01:30 Aspirin (Halfprin) 81 mg DAILY PO Last administered on 03/05/17 09:07; Admin Dose 81 MG; Start 03/02/17 at 17:00 Ergocalciferol (Drisdol) 50,000 unit Mo@09 PO Last administered on 03/04/17 09 :12; Admin Dose 50,000 UNIT; Start 03/04/17 at 09:00 Atorvastatin Calcium (Lipitor) 40 mg DAILY@21 PO Last administered on 21:22; Admin Dose 40 MG; Start 03/04/17 at 21:00 Lorazepam (Ativan) 1 mg BID PRN PO ANXIETY; Start 03/05/17 at 07:00 Prednisone 50 mg 50 mg DAILY PO ; Start 03/06/17 at 09:00 Calcium Gluconate/ Sodium Chloride (Ca Gluc/NS) 110 ml @ 110 mls/hr Q12H IVPB ; Start 03/05/17 at 18:00; Stop 03/07/17 at 06:59 Calcitriol (Rocaltrol) 0.75 mcg BID PO ; Start 03/05/17 at 21:00; Status UNV Calcium Carbonate (Tums) 2,500 mg QID PO ; Start 03/05/17 at 21:00; Status JOSEFV XANDER OLSON MD Mar 05, 2017 17:42
[2017-03-05] MEDS: CALCIUM GLUCONATE 10% 1 GM in SOD CHLORIDE 0.9% 100 ML IVPB SCH (18:46)
[2017-03-05] MEDS: CALCITRIOL 0.25 MCG CAP PO SCH (20:39)
[2017-03-05] MEDS: ATORVASTATIN 40 MG TAB PO SCH (20:39)
[2017-03-06] VITALS (12 sets, daily range): BP systolic 128–151; BP diastolic 75–89; PULSE 69–83; RESP 18–20
[2017-03-06] MEDS: CALCIUM GLUCONATE 10% 1 GM in SOD CHLORIDE 0.9% 100 ML IVPB SCH ×2 (06:43→17:09)
[2017-03-06 07:39] LABS: ALBUMIN 3.6 g/dl (3.3-4.9); ALBUMIN/GLOBULIN RATIO 1.12; BILIRUBIN,INDIRECT 0.1 mg/dl (0-1.1); BILIRUBIN,TOTAL 0.1 mg/dl (0.2-1.3); CREATININE 0.81 mg/dl (0.44-1.00); POTASSIUM 3.2 mmol/L (3.5-5.1); TOTAL PROTEIN 6.8 g/dl (6.1-8.1)
[2017-03-06] MEDS: ASPIRIN (EC) 81 MG TAB PO SCH (08:52)
[2017-03-06] MEDS: predniSONE 50 MG TAB PO SCH (08:52)
[2017-03-06] MEDS: FAMOTIDINE 20 MG TAB GTB SCH ×2 (08:53→20:46)
[2017-03-06] MEDS: CALCIUM CARBONATE 500 MG CHEW TAB PO SCH ×4 (08:55→20:44)
[2017-03-06] MEDS: CALCITRIOL 0.25 MCG CAP PO SCH ×2 (08:56→20:45)
[2017-03-06] MEDS ORDERED: POTASSIUM CHLORIDE (SR) 20 MEQ TAB PO ONE ×2 (12:00→12:02)
[2017-03-06 19:56] LABS: PTH CALCIUM 6.4 mg/dL (8.6-10.4)
[2017-03-06] MEDS: traMADol 50 MG TAB PO PRN (20:46)
[2017-03-06] MEDS: ATORVASTATIN 40 MG TAB PO SCH (20:46)
--- NOTE | 2017-03-06 23:18 | PN ---
Date/Time of Note Date/Time of Note DATE: 03/06/17 TIME: 23:15 Assessment/Plan VTE Prophylaxis VTE Prophylaxis Intervention: other Lines/Catheters IV Catheter Type (from Nrsg): Saline Lock Assessment/Plan Chief Complaint/Hosp Course 1. 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 Hypertension, controlled 3. Chronic Hypocalcemia could be s Hypoparathyroidism( pt said thast she was told in [place] view) vs Vit d def 4. Hx of stroke 2 years ago 5. Dyslipidemia 6. Overweight PLAN CALCIUM REPLACEMENT tums rocalcitriol Problems: Exam/Review of Systems Vital Signs Vitals Vital Signs Date Time Temp Pulse Resp B/P Pulse Ox O2 Delivery O2 Flow Rate FiO2 03/06/17 20:21 97.9 75 18 130/83 95 Intake and Output 03/05/17 03/05/17 03/06/17 15:00 23:00 07:00 Intake Total 500 ml 350 ml Balance 500 ml 350 ml Exam Neck: supple Respiratory: clear to auscultation Cardiovascular: regular rate and rhythm Gastrointestinal: soft Extremities: normal pulses Results Result Diagram: 03/04/17 0639 03/06/17 0624 Results 24 hrs Laboratory Tests Test 03/06/17 06:24 Sodium Level 140 Potassium Level 3.2 L Chloride Level 106 Carbon Dioxide Level 25 Anion Gap 12 Blood Urea Nitrogen 20 Creatinine 0.81 Glucose Level 124 Calcium Level 6.0 L Total Bilirubin 0.1 L Direct Bilirubin 0.00 Indirect Bilirubin 0.1 Aspartate Amino Transf (AST/SGOT) 20 Alanine Aminotransferase (ALT/SGPT) 27 Alkaline Phosphatase 69 Total Protein 6.8 Albumin 3.6 Globulin 3.20 Albumin/Globulin Ratio 1.12 Medications Medications Current Medications Acetaminophen (Tylenol Tab) 650 mg Q6H PRN PO PAIN AND OR ELEVATED TEMP Last administered on 03/03/17 23:09; Admin Dose 650 MG; Start 03/02/17 at 01:30 Docusate Sodium (Colace) 100 mg BID PRN PO CONSTIPATION; Start 03/02/17 at 01:30 Ondansetron HCl (Zofran Inj) 4 mg Q6H PRN IV NAUSEA AND/OR VOMITING; Start 03/02 at 01:30 Famotidine (Pepcid) 20 mg BID GTB Last administered on 03/06/17 20:46; Admin Dose 20 MG; Start 03/02/17 at 09:00 Carvedilol (Coreg) 12.5 mg BID PO Last administered on 03/06/17 20:46; Admin Dose 12.5 MG; Start 03/02/17 at 09:00 Tramadol HCl (Ultram) 50 mg Q8 PRN PO PAIN Last administered on 03/06/17 20:46 ; Admin Dose 50 MG; Start 03/02/17 at 01:30 Aspirin (Halfprin) 81 mg DAILY PO Last administered on 03/06/17 08:52; Admin Dose 81 MG; Start 03/02/17 at 17:00 Ergocalciferol (Drisdol) 50,000 unit Mo@09 PO Last administered on 03/04/17 09 :12; Admin Dose 50,000 UNIT; Start 03/04/17 at 09:00 Atorvastatin Calcium (Lipitor) 40 mg DAILY@21 PO Last administered on 20:46; Admin Dose 40 MG; Start 03/04/17 at 21:00 Lorazepam (Ativan) 1 mg BID PRN PO ANXIETY Last administered on 03/05/17 18:46 ; Admin Dose 1 MG; Start 03/05/17 at 07:00 Prednisone 50 mg 50 mg DAILY PO Last administered on 03/06/17 08:52; Admin Dose 50 MG; Start 03/06/17 at 09:00 Calcium Gluconate/ Sodium Chloride (Ca Gluc/NS) 110 ml @ 110 mls/hr Q12H IVPB Last administered on 03/06/17 17:09; Admin Dose 110 MLS/HR; Start 03/05/17 at 18:00; Stop 03/07/17 at 06:59 Calcitriol (Rocaltrol) 0.75 mcg BID PO Last administered on 03/06/17 20:45; Admin Dose 0.75 MCG; Start 03/05/17 at 21:00 Calcium Carbonate (Tums) 2,500 mg QID PO Last administered on 03/06/17 20:44; Admin Dose 2,500 MG; Start 03/05/17 at 21:00 XANDER OLSON MD Mar 06, 2017 23:18
[2017-03-07] VITALS (12 sets, daily range): BP systolic 105–159; BP diastolic 56–80; PULSE 59–81; RESP 19–21
[2017-03-07] MEDS: CALCIUM GLUCONATE 10% 1 GM in SOD CHLORIDE 0.9% 100 ML IVPB SCH (05:45)
[2017-03-07] MEDS: ASPIRIN (EC) 81 MG TAB PO SCH (08:25)
[2017-03-07] MEDS: predniSONE 50 MG TAB PO SCH (08:26)
[2017-03-07] MEDS: FAMOTIDINE 20 MG TAB GTB SCH ×2 (08:26→20:34)
[2017-03-07] MEDS: CALCITRIOL 0.25 MCG CAP PO SCH ×2 (08:27→20:33)
[2017-03-07] MEDS: CALCIUM CARBONATE 500 MG CHEW TAB PO SCH ×4 (08:29→20:34)
[2017-03-07 08:35] LABS: ALBUMIN 3.8 g/dl (3.3-4.9); ALBUMIN/GLOBULIN RATIO 1.15; BILIRUBIN,INDIRECT 0.2 mg/dl (0-1.1); BILIRUBIN,TOTAL 0.2 mg/dl (0.2-1.3); CALCIUM 7.9 mg/dl (8.4-10.2); CREATININE 0.86 mg/dl (0.44-1.00); POTASSIUM 3.9 mmol/L (3.5-5.1); TOTAL PROTEIN 7.1 g/dl (6.1-8.1)
--- NOTE | 2017-03-07 18:04 | PN ---
Date/Time of Note Date/Time of Note DATE: 03/07/17 TIME: 18:04 Assessment/Plan VTE Prophylaxis VTE Prophylaxis Intervention: other Lines/Catheters IV Catheter Type (from Nrsg): Saline Lock Assessment/Plan Chief Complaint/Hosp Course 1. Right eye pain with right eye blindness, possible Carlos's palsy r/o stroke BETTER 2. Hypertension, controlled 3. Chronic Hypocalcemia could be s Hypoparathyroidism( pt said thast she was told in [place] view) vs Vit d def BETTER 4. Hx of stroke 2 years ago 5. Dyslipidemia 6. Overweight PLAN CALCIUM REPLACEMENT tums rocalcitriol [facility] Problems: Subjective 24 Hr Interval Summary Gastrointestinal: no complaints Genitourinary: no complaints Musculoskeletal: no complaints Exam/Review of Systems Vital Signs Vitals Vital Signs Date Time Temp Pulse Resp B/P Pulse Ox O2 Delivery O2 Flow Rate FiO2 03/07/17 16:00 75 03/07/17 15:59 98.1 20 116/60 100 Intake and Output 03/06/17 03/06/17 03/07/17 15:00 23:00 07:00 Intake Total 1200 ml 400 ml Balance 1200 ml 400 ml Exam ENMT: nl external ears & nose Neck: supple Respiratory: clear to auscultation Cardiovascular: regular rate and rhythm Gastrointestinal: soft Musculoskeletal: nl extremities to inspection Extremities: normal pulses Results Result Diagram: 03/04/17 0639 03/07/17 0701 Results 24 hrs Laboratory Tests Test 03/07/17 07:01 Sodium Level 140 Potassium Level 3.9 Chloride Level 101 Carbon Dioxide Level 31 Anion Gap 12 Blood Urea Nitrogen 18 Creatinine 0.86 Glucose Level 83 # Calcium Level 7.9 L Total Bilirubin 0.2 Direct Bilirubin 0.00 Indirect Bilirubin 0.2 Aspartate Amino Transf (AST/SGOT) 21 Alanine Aminotransferase (ALT/SGPT) 34 Alkaline Phosphatase 70 Total Protein 7.1 Albumin 3.8 Globulin 3.30 H Albumin/Globulin Ratio 1.15 Medications Medications Current Medications Acetaminophen (Tylenol Tab) 650 mg Q6H PRN PO PAIN AND OR ELEVATED TEMP Last administered on 03/03/17t 23:09; Admin Dose 650 MG; Start 03/02/17 at 01:30 Docusate Sodium (Colace) 100 mg BID PRN PO CONSTIPATION; Start 03/02/17 at 01:30 Ondansetron HCl (Zofran Inj) 4 mg Q6H PRN IV NAUSEA AND/OR VOMITING; Start 03/02 at 01:30 Famotidine (Pepcid) 20 mg BID GTB Last administered on 03/07/17 08:26; Admin Dose 20 MG; Start 03/02/17 at 09:00 Carvedilol (Coreg) 12.5 mg BID PO Last administered on 03/07/17 08:25; Admin Dose 12.5 MG; Start 03/02/17 at 09:00 Tramadol HCl (Ultram) 50 mg Q8 PRN PO PAIN Last administered on 03/06/17 20:46 ; Admin Dose 50 MG; Start 03/02/17 at 01:30 Aspirin (Halfprin) 81 mg DAILY PO Last administered on 03/07/17 08:25; Admin Dose 81 MG; Start 03/02/17 at 17:00 Ergocalciferol (Drisdol) 50,000 unit Mo@09 PO Last administered on 03/04/17 09 :12; Admin Dose 50,000 UNIT; Start 03/04/17 at 09:00 Atorvastatin Calcium (Lipitor) 40 mg DAILY@21 PO Last administered on 20:46; Admin Dose 40 MG; Start 03/04/17 at 21:00 Lorazepam (Ativan) 1 mg BID PRN PO ANXIETY Last administered on 03/05/17 18:46 ; Admin Dose 1 MG; Start 03/05/17 at 07:00 Prednisone (Prednisone) 50 mg DAILY PO Last administered on 03/07/17 08:26; Admin Dose 50 MG; Start 03/06/17 at 09:00 Calcitriol (Rocaltrol) 0.75 mcg BID PO Last administered on 03/07/17 08:27; Admin Dose 0.75 MCG; Start 03/05/17 at 21:00 Calcium Carbonate (Tums) 2,500 mg QID PO Last administered on 03/07/17 17:23; Admin Dose 2,500 MG; Start 03/05/17 at 21:00 XANDER OLSON MD Mar 07, 2017 18:04
[2017-03-07] MEDS: ATORVASTATIN 40 MG TAB PO SCH (20:33)
[2017-03-07] MEDS: traMADol 50 MG TAB PO PRN (20:36)
[2017-03-08 00:07] VITALS: PULSE 61
[2017-03-08 00:08] VITALS: BP 122/65; RESP 20
[2017-03-08] MEDS ORDERED: ZOLPIDEM 5 MG TAB PO PRN (00:30)
[2017-03-08 04:03] VITALS: PULSE 67
[2017-03-08 04:06] VITALS: BP 128/62; RESP 20
[2017-03-08 07:39] VITALS: BP 135/82; RESP 18
[2017-03-08 08:07] VITALS: PULSE 69
[2017-03-08 08:17] LABS: ALBUMIN 3.7 g/dl (3.3-4.9); ALBUMIN/GLOBULIN RATIO 1.19; BILIRUBIN,INDIRECT 0.3 mg/dl (0-1.1); BILIRUBIN,TOTAL 0.3 mg/dl (0.2-1.3); CALCIUM 8.2 mg/dl (8.4-10.2); CREATININE 0.9 mg/dl (0.44-1.00); TOTAL PROTEIN 6.8 g/dl (6.1-8.1)
[2017-03-08] MEDS: CALCIUM CARBONATE 500 MG CHEW TAB PO SCH ×2 (09:10→14:03)
[2017-03-08] MEDS: CALCITRIOL 0.25 MCG CAP PO SCH (09:11)
[2017-03-08] MEDS: ASPIRIN (EC) 81 MG TAB PO SCH (09:11)
[2017-03-08] MEDS: FAMOTIDINE 20 MG TAB GTB SCH (09:12)
[2017-03-08] MEDS: predniSONE 50 MG TAB PO SCH (09:12)
--- NOTE | 2017-03-08 10:32 | PN ---
Date/Time of Note Date/Time of Note DATE: 03/08/17 TIME: 10:29 Assessment/Plan VTE Prophylaxis VTE Prophylaxis Intervention: ambulation Lines/Catheters IV Catheter Type (from Nrs): Saline Lock Assessment/Plan Chief Complaint/Hosp Course 1. 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 Hypertension, controlled 3. Chronic Hypocalcemia unknown etiology 4. Hx of stroke 2 years ago 5. Dyslipidemia 6. Overweight Problems: Assessment/Plan 1. Taper Prednisone, 2. d/c home with Medrol dose pack 3. Satin to 40 mg daily 4. management of hypocalcemia with Tums 5. Eye patch, eye drops when sleeping 6. d/c with Protonix Subjective 24 Hr Interval Summary Eyes: visual change (right eye) Respiratory: no complaints Cardiovascular: no complaints Exam/Review of Systems Vital Signs Vitals Vital Signs Date Time Temp Pulse Resp B/P Pulse Ox O2 Delivery O2 Flow Rate FiO2 03/08/17 08:07 69 03/08/17 07:39 98.1 18 135/82 100 Intake and Output 03/07/17 03/07/17 03/08/17 15:00 23:00 07:00 Intake Total 1000 ml 550 ml Balance 1000 ml 550 ml Exam Constitutional: alert, oriented Eyes: nl conjunctiva, other (right eye blindeness, weakness of right upper lid) Cardiovascular: regular rate and rhythm Results Result Diagram: 03/04/17 0639 03/08/17 0639 Results 24 hrs Laboratory Tests Test 03/08/17 06:39 Sodium Level 139 Potassium Level 4.0 Chloride Level 98 Carbon Dioxide Level 33 H Anion Gap 12 Blood Urea Nitrogen 19 Creatinine 0.90 Glucose Level 86 Calcium Level 8.2 L Total Bilirubin 0.3 Direct Bilirubin 0.00 Indirect Bilirubin 0.3 Aspartate Amino Transf (AST/SGOT) 19 Alanine Aminotransferase (ALT/SGPT) 33 Alkaline Phosphatase 71 Total Protein 6.8 Albumin 3.7 Globulin 3.10 Albumin/Globulin Ratio 1.19 Medications Medications Current Medications Acetaminophen (Tylenol Tab) 650 mg Q6H PRN PO PAIN AND OR ELEVATED TEMP Last administered on 03/03/17 23:09; Admin Dose 650 MG; Start 03/02/17 at 01:30 Docusate Sodium (Colace) 100 mg BID PRN PO CONSTIPATION; Start 03/02/17 at 01:30 Ondansetron HCl (Zofran Inj) 4 mg Q6H PRN IV NAUSEA AND/OR VOMITING; Start 03/02 at 01:30 Famotidine (Pepcid) 20 mg BID GTB Last administered on 03/08/17 09:12; Admin Dose 20 MG; Start 03/02/17 at 09:00 Carvedilol (Coreg) 12.5 mg BID PO Last administered on 03/08/17 09:12; Admin Dose 12.5 MG; Start 03/02/17 at 09:00 Tramadol HCl (Ultram) 50 mg Q8 PRN PO PAIN Last administered on 03/07/17 20:36 ; Admin Dose 50 MG; Start 03/02/17 at 01:30 Aspirin (Halfprin) 81 mg DAILY PO Last administered on 03/08/17 09:11; Admin Dose 81 MG; Start 03/02/17 at 17:00 Ergocalciferol (Drisdol) 50,000 unit Mo@09 PO Last administered on 03/04/17 09 :12; Admin Dose 50,000 UNIT; Start 03/04/17 at 09:00 Atorvastatin Calcium (Lipitor) 40 mg DAILY@21 PO Last administered on 20:33; Admin Dose 40 MG; Start 03/04/17 at 21:00 Lorazepam (Ativan) 1 mg BID PRN PO ANXIETY Last administered on 03/05/17 18:46 ; Admin Dose 1 MG; Start 03/05/17 at 07:00 Prednisone (Prednisone) 50 mg DAILY PO Last administered on 03/08/17 09:12; Admin Dose 50 MG; Start 03/06/17 at 09:00 Calcitriol (Rocaltrol) 0.75 mcg BID PO Last administered on 03/08/17 09:11; Admin Dose 0.75 MCG; Start 03/05/17 at 21:00 Calcium Carbonate (Tums) 2,500 mg QID PO Last administered on 03/08/17 09:10; Admin Dose 2,500 MG; Start 03/05/17 at 21:00 Zolpidem Tartrate (Ambien) 5 mg HS PRN PO INSOMNIA Last administered on 00:37; Admin Dose 5 MG; Start 03/08/17 at 00:30 JOHANN CHACON Mar 08, 2017 10:32
[2017-03-08] MEDS ORDERED: CALC0.2511 PO (10:59)
[2017-03-08] MEDS ORDERED: PRED50 PO (10:59)
[2017-03-08] MEDS ORDERED: ATOR40TA68 PO (10:59)
[2017-03-08] MEDS ORDERED: CALC200T26 PO (10:59)
[2017-03-08] MEDS ORDERED: [UNRECOGNIZED DRUG - OTHER] RIGHT EYE (10:59)
[2017-03-08] MEDS ORDERED: CARV12.579 PO (10:59)
[2017-03-08] MEDS ORDERED: FAMO20TA18 GTB (10:59)
[2017-03-08] MEDS ORDERED: ASPI-664 PO (10:59)
[2017-03-08] MEDS ORDERED: ERGO500037 PO (10:59)
--- NOTE | 2017-03-08 11:01 | PDOCDIS ---
Discharge Instructions DIAGNOSIS Discharge Diagnosis right side [place] Palsy CONDITION Patient Condition: Good HOME CARE INSTRUCTIONS: Diet Instructions: Low Fat /CholesterolSpecial Diet: 2Gm Na ACTIVITY: Activity Restrictions: Slowly Increase Activity Bathing Restrictions: Shower FOLLOW UP/APPOINTMENTS Follow-up Plan PCP 1 week to check Calcium level JOHANN CHACON Mar 08, 2017 11:01
[2017-03-08] MEDS ORDERED: OCULAR LUBRICANT 3.5 GM OPH OINT RIGHT EYE SCH (21:00)
== END 2017-03-08 14:15 | disposition home or self-care (01) | DRG 74 ==
LOC: MS4 22:54
PROVIDERS: ADMIT Internal Medicine Nephrology; ATTEND Internal Medicine Nephrology
DX: G51.0 Bell's palsy (principal); E83.51 Hypocalcemia; I10 Essential (primary) hypertension; H54.41 Blindness, right eye, normal vision left eye; Z86.73 Personal history of transient ischemic attack (TIA), and cerebral infarction without residual deficits; E66.3 Overweight; Z68.31 Body mass index [BMI] 31.0-31.9, adult
CPT/HCPCS: 70553; 80048; 80053; 80061; 82306; 82310; 82330; 83036; 83735; 83970; 84100; 84436; 84443; 84479; 85025; 93306; J0610; J3475; J7512

== ENCOUNTER 2017-11-12 14:05 | Emergency (ER) | END 2017-11-12 21:24 | disposition home or self-care (01) ==